=== PATIENT | male | born 1965 | race Caucasian/White ===

== ENCOUNTER 2019-12-02 18:56 | Emergency (ER) | payer OTHER, SELFPAY ==
[2019-12-02 19:07] VITALS: BP 169/91; PULSE 65; RESP 18; TEMP 36.9; O2SAT 98; BMI 24.3
--- NOTE | 2019-12-02 19:12 | DI.RAD.S_ITS ---
PROCEDURE: XR FOOT LT MIN 3V INDICATIONS: Toe and ankle pain TECHNIQUE: 3 views of the foot were acquired. COMPARISON: None. FINDINGS: Bones: No fractures there is a suspected dislocation involving the 5th metatarsal-film Felipa articulation due to overlap of osseous margins seen in that area on 2 of the three views. The lateral view does not fully include this area. Mild old trauma may have occurred at the base of the 2nd proximal phalanx also.. No suspicious bony lesions. Soft tissues: No tibiotalar joint effusion. Achilles tendon appears normal. IMPRESSION: Suspect 5th MTP joint dislocation, old trauma likely has occurred at the base of the 2nd proximal phalanx along its lateral border. Dictated by: Bahman Ontiveros M.D. on 12/02/2019 at 19:36 Approved by: Bahman Ontiveros M.D. on 12/02/2019 at 19:38
[2019-12-02] MEDS: ACETAMINOPHEN 325 MG TABLET 975 MG PO (20:02)
--- NOTE | 2019-12-02 21:04 | ED.LOWEXIN ---
HPI - Extremity Injury (Lower) General Chief Complaint: Extremity Injury, Lower Stated Complaint: LEFT FOOT INJURY Time Seen by Provider: 12/02/19 21:04 Source: patient Mode of arrival: Ambulatory Limitations: no limitations History of Present Illness HPI Narrative: Otherwise healthy 54-year-old gentleman who was at work today and a loading alla was out of control ended up rolling over the posterior portion of his foot and lateral portion. He comes in with a moderate amount of pain ecchymosis beginning over the 5th toe and some difficulty walking. No lacerations and foot and ankle are completely neurovascularly intact. Related Data Allergies Allergy/AdvReac Type Severity Reaction Status Date / Time No Known Drug Allergies Allergy Verified 12/02/19 19:07 Review of Systems Review of Systems Narrative: Pertinent positive and negative findings as per HPI Remainder of review of systems is otherwise unremarkable for Constitutional: Fevers, chills, weakness ENT: No sore throat, neck pain, ear pain CV: Chest pain, palpitations, Respiratory: Cough, wheeze, dyspnea GI: Nausea, vomiting, diarrhea, : Dysuria, hematuria, flank pain MS: Muscle weakness, numbness, joint swelling or warmth Patient History Social History Smoking Status: Never smoker Smoking Status: Never smoker alcohol intake frequency: 0-2 drinks per day Substance Use Type: does not use Exam Narrative Exam Narrative: General: Alert appropriate in no acute distress Respiratory: Able to speak in full sentences, no obvious respiratory distress Skin: No obvious rashes, warm and dry Neurologic: Grossly intact no obvious asymmetries or abnormalities Psych, appropriate insight and affect, cooperative Extremity: Left Achilles area with moderate amount of edema and ecchymosis starting. Achilles tendon itself is completely intact there is no tenderness in the calf or woo. He has good range of motion at the ankle. There is mild ecchymosis in the lateral aspect of the left 5th toe with some tenderness at the MTP joint Initial Vital Signs Initial Vital Signs: Vital Signs Temperature 98.4 F 12/02/19 19:07 Pulse Rate 65 12/02/19 19:07 Respiratory Rate 18 12/02/19 19:07 Blood Pressure 169/91 H 12/02/19 19:07 Pulse Oximetry 98 12/02/19 19:07 Procedures Orthopedic Joint Reduction Joint #1: Side: left Joint Reduction Location: toe Analgesia: hematoma block Local Anesthesia: lidocaine 1% and with bicarb Amount of anesthesic used (mL): 10 Technique used: direct manipulation Post-reduction neuro exam: intact Post-reduction vascular: intact Post Reduction X-Ray Obtained: Yes Post Reduction X-Ray Results: reduced Splint Applied: Yes (Hard sole walking shoe. Comfortable and neurovascular intact with shoe ) Patient Tolerated Procedure: Well Course Orders Ordered: ED Orders 12/02/19 19:12 XR foot LT min 3V Stat 12/02/19 21:35 XR foot LT min 3V Stat Discontinued Medications Acetaminophen (Tylenol) 650 mg PO NOW ONE Stop: 12/02/19 19:14 Last Admin: 12/02/19 20:03 Dose: Not Given Documented by: VERONICA Acetaminophen (Tylenol) 975 mg PO NOW ONE Stop: 12/02/19 20:01 Last Admin: 12/02/19 20:02 Dose: 975 mg Documented by: VERONICA Lidocaine/Sodium Bicarbonate (Buffered Lidocaine 10 Ml Syr) 10 ml INJ NOW ONE Stop: 12/02/19 21:19 Last Admin: 12/02/19 21:23 Dose: 10 ml Documented by: VERONICA Oxycodone/Acetaminophen (Endocet 5/325 Prepack) 1 bottle MISC SEEINSTR ONE Stop: 12/02/19 21:19 Last Admin: 12/02/19 21:23 Dose: 1 bottle Documented by: VERONICA Vital Signs Vital signs: Vital Signs - 8 hr 12/02/19 22:12 Pulse Rate 62 Respiratory Rate 15 Blood Pressure 141/90 H Pulse Oximetry 98 MDM - Extremity Injury (Lower) Imaging Data X-ray foot: Radiologist's Impression: IMPRESSION: Suspect 5th MTP joint dislocation, old trauma likely has occurred at the base of the 2nd proximal phalanx along its lateral border. Dictated by: Bahman Ontiveros M.D. on 12/02/2019 at 19:36 Postreduction x-ray foot: Radiologist's Impression: IMPRESSION: Successful reduction of 5th MTP joint dislocation, without fracture visualized. Dictated by: Bahman Ontiveros M.D. on 12/02/2019 at 22:05 MDM Narrative Medical decision making narrative: Mechanical injury with alla running over his foot and dislocation of the 5th toe. Relocated without complication. Hard sole shoe in place. L& I forms filled out. Safe for home discharge Discharge Plan Departure Patient Disposition: Home Clinical Impression: Closed dislocation of toe of left foot Qualifiers: Encounter type: initial encounter Qualified Code(s): S93.105A - Unspecified dislocation of left toe(s), initial encounter Contusion of foot or heel Qualifiers: Encounter type: initial encounter Laterality: left Qualified Code(s): S90.32XA - Contusion of left foot, initial encounter Discharge Date/Time: 12/02/19 22:13 Instructions: Dislocated Toe Activity Restrictions/Additional Instructions: Thank you for coming in tonight I am sorry you got run over by a trolley at work. You do have a large bruise on the back of your ankles that will heal nicely. There is no significant bone injury under that. You dislocated year 5th toe. It has been relocated and is now nicely aligned. I would expect bruising and swelling over the next couple of days. Using 400 mg of ibuprofen (2 [id number] pills) and 1 Tylenol every 6 hours can be very helpful in controlling pain. For severe pain using 400 mg of ibuprofen and 1 Percocet will be helpful. Keeping the foot elevated, using the hard sole shoe that we gave you or a hard sole shoe like a steel-toed work boot is going to be helpful for supporting that toe while it continues to heal. Ice can also be helpful to control the swelling. I have recommended 2 days off work. He can return to full duty with hard sole boot in place following that. L & I paperwork has been completed. I hope you heal quickly. Stand Alone Forms: Work Release Note
[2019-12-02] MEDS: OXYCODONE/APAP 5/325 PREPACK 1 BOTTLE MISC (21:23)
[2019-12-02] MEDS: LIDO 1%/SOD BICARB 8.4% (10ML) 10 ML SYRINGE INJ (21:23)
--- NOTE | 2019-12-02 21:35 | DI.RAD.S_ITS ---
PROCEDURE: XR FOOT LT MIN 3V INDICATIONS: relocation TECHNIQUE: 3 views of the foot were acquired. COMPARISON: [facility], , XR FOOT LT MIN 3V, 12/02/2019, 19:07. FINDINGS: Bones: No fractures or dislocations. No suspicious bony lesions. Soft tissues: No tibiotalar joint effusion. Achilles tendon appears normal. IMPRESSION: Successful reduction of 5th MTP joint dislocation, without fracture visualized. Dictated by: Bahman Ontiveros M.D. on 12/02/2019 at 22:05 Approved by: Bahman Ontiveros M.D. on 12/02/2019 at 22:05
[2019-12-02 22:12] VITALS: BP 141/90; PULSE 62; RESP 15; O2SAT 98
== END 2019-12-02 22:13 | disposition home or self-care (01) ==
PROVIDERS: Emergency Provider Emergency Medicine
DX: S93.105A Unspecified dislocation of left toe(s), initial encounter (principal); S90.32XA Contusion of left foot, initial encounter; W22.8XXA Striking against or struck by other objects, initial encounter; Y99.0 Civilian activity done for income or pay
CPT/HCPCS: 28630; 73630; 99284

== ENCOUNTER 2021-01-14 19:00 | Emergency (ER) | payer SELFPAY ==
[2021-01-14 19:21] VITALS: BP 154/91; PULSE 63; RESP 14; TEMP 37; O2SAT 99; BMI 23.2
--- NOTE | 2021-01-14 19:24 | DI.RAD.S_ITS ---
PROCEDURE: XR HAND RT MIN 3V INDICATIONS: Hand injury TECHNIQUE: 3 views of the hand(s) acquired. COMPARISON: None. FINDINGS: Bones: No fractures or dislocations. Carpal bones are normally aligned. No suspicious bony lesions. Soft tissues: No suspicious soft tissue calcifications. IMPRESSION: No acute finding. Dictated by: Yosi Anthony M.D. on 01/14/2021 at 20:11 Approved by: Yosi Anthony M.D. on 01/14/2021 at 20:15
[2021-01-14 22:07] VITALS: BP 145/85; PULSE 49; O2SAT 98
== END 2021-01-14 23:06 | disposition left against medical advice (07) ==
PROVIDERS: Emergency Provider Emergency Medicine
DX: S69.91XA Unspecified injury of right wrist, hand and finger(s), initial encounter (principal); W18.09XA Striking against other object with subsequent fall, initial encounter
CPT/HCPCS: 73130; 99281